=== PATIENT | female | born 1955 | race Caucasian/White ===

== ENCOUNTER → 2016-06-26 | Outpatient (CLI) | payer BC ==
--- NOTE | 2016-06-27 09:25 | MM ---
Reason for exam: screening (asymptomatic). Last mammogram was performed 3 years and 1 month ago. History: Patient is postmenopausal. Took hormonal contraceptives for 6 months beginning at age 18. Physical Findings: A clinical breast exam by your physician is recommended on an annual basis and results should be correlated with mammographic findings. MG Screening Mammo w CAD Bilateral CC and MLO view(s) were taken. Prior study comparison: June 10, 2013, bilateral digital screening mammo w/CAD. January 08, 2011, bilateral digital screening mammo w/CAD. The breast tissue is heterogeneously dense. This may lower the sensitivity of mammography. There is no discrete abnormality. No significant changes when compared with prior studies. ASSESSMENT: Negative, BI-RAD 1 RECOMMENDATION: Routine screening mammogram of both breasts in 1 year.
== END | disposition home or self-care (01) ==
LOC: RADMAMWWP 13:07
PROVIDERS: ATTEND Obstetrics & Gynecology
DX: Z12.31 Encounter for screening mammogram for malignant neoplasm of breast (principal)

== ENCOUNTER 2018-07-06 07:45 | Day surgery (SDC) | payer BC ==
[~2018-07-06 07:45] MED LIST: LACTATED RINGERS 1,000 ML IV SCH; LIDOCAINE 1% 20 ML VIAL (10MG/ML) FOR IV START INTRADERMA PRN
[2018-07-06 08:20] VITALS: TEMP 97.2
[2018-07-06] MEDS ORDERED: PROPOFOL 10 MG/ML 20 ML VIAL IV ONE (09:16)
[2018-07-06] MEDS ORDERED: LIDOCAINE 1% INJ 10MG/ML (20 ML MDV) ONE (09:16)
[2018-07-06] MEDS ORDERED: MIDAZOLAM 2 MG/2 ML VIAL ONE (09:16)
--- NOTE | 2018-07-06 09:46 | P.PCN ---
Date of Procedure: 07/06/18 Procedure(s) Performed: Procedure: Total colonoscopy. Preoperative diagnosis: Screening for neoplasia. Postoperative diagnosis: Exam within normal limits. Preparation: HalfLytely prep. Sedation: Was provided by anesthesia. Brief clinical history: The patient is a 63-year-old female who is scheduled for this evaluation for screening for neoplasia age being her risk factor. She has history of chronic neutropenia. She has no abdominal complaints, bleeding or anemia. No family history of colon cancer. This would be her first colonoscopy. Procedure: With the patient on her left lateral decubitus position and after informed consent and adequate sedation, the perianal area was inspected and it did not show any fissures or fistulas. The were no masses felt on digital rectal examination. The Olympus CFH 190L video colonoscope was then inserted in the rectum in the usual fashion and advanced to the cecum. The mucosa appeared healthy. No polyps or tumors were seen or any obvious diverticular disease or other pathology. I retroflexed theendoscope in the rectum before the endoscope was withdrawn. The patient tolerated the procedure well. Plan: The patient was reassured. She will follow-up with you as planned and I recommended repeat exam in 10 years.
[2018-07-06 10:03] VITALS: BP 122/80; PULSE 68; RESP 61
== END 2018-07-06 10:28 | disposition home or self-care (01) ==
LOC: ORWHC2ENDO 07:45
DX: Z12.11 Encounter for screening for malignant neoplasm of colon (principal); D70.9 Neutropenia, unspecified; Z88.0 Allergy status to penicillin; Z88.2 Allergy status to sulfonamides; Z79.899 Other long term (current) drug therapy; J44.9 Chronic obstructive pulmonary disease, unspecified
CPT/HCPCS: J2250; J2001; J2704; G0121

== ENCOUNTER → 2018-07-09 | Outpatient (CLI) | payer BC ==
--- NOTE | 2018-07-09 13:44 | MM ---
Reason for exam: screening (asymptomatic). Last mammogram was performed 2 years ago. History: Patient is postmenopausal. Took hormonal contraceptives for 6 months beginning at age 18. Physical Findings: A clinical breast exam by your physician is recommended on an annual basis and results should be correlated with mammographic findings. MG Screening Mammo w CAD Bilateral CC and MLO view(s) were taken. Prior study comparison: June 26, 2016, bilateral MG screening mammo w CAD. June 10, 2013, bilateral digital screening mammo w/CAD. The breast tissue is heterogeneously dense. This may lower the sensitivity of mammography. There are benign appearing round vascular calcifications bilaterally, greater in the left breast. There is no discrete abnormality. ASSESSMENT: Benign, BI-RAD 2 RECOMMENDATION: Routine screening mammogram of both breasts in 1 year.
== END ==
LOC: RADMAMWWP 07:33
PROVIDERS: ATTEND Internal Medicine Hematology & Oncology
DX: Z12.31 Encounter for screening mammogram for malignant neoplasm of breast (principal)
CPT/HCPCS: 77067

== ENCOUNTER 2020-07-07 13:31 | Emergency (ER) | payer BC, MEDICARE ==
[2020-07-07] MEDS ORDERED: SODIUM CHLORIDE 0.9% 500 ML 500 ML IV STA (13:58)
[2020-07-07] MEDS ORDERED: ONDANSETRON 4 MG/2 ML VIAL IVP STA (14:00)
[2020-07-07] MEDS ORDERED: IBUPROFEN 600 MG TAB PO STA (14:02)
--- NOTE | 2020-07-07 14:05 | ED ---
General Adult HPI - General Chief complaint: Shortness of Breath Stated complaint: SOB,+COVID Time Seen by Provider: 07/07/20 13:43 Source: patient, EMS Mode of arrival: EMS Limitations: no limitations - History of Present Illness Initial comments: 65-year-old female with a past medical history of chronic neutropenia, pneumonia COPD presents to the emergency room for a chief complaint of feeling unwell. Patient reports that for 7 days she has had symptoms of Covid. She tested positive 4 days ago. Patient reports that she has had body aches and fevers. States she has intermittent shortness of breath. Patient denies shortness of breath at this time. Denies any history of chest pain. Patient states she has also had nausea vomiting diarrhea. States she has been able to eat and drink a small amount but does feel dehydrated. Feels somewhat weak. Patient took Tylenol about 3 hours prior to arrival.Patient has no other complaints at this t aleida including shortness of breath, chest pain, abdominal pain, nausea or vomiting, headache, or visual changes. - Related Data Home Medications Medication Instructions Recorded Confirmed Biotin 5 mg PO DAILY 07/29/15 07/06/18 Glucosam/Sam-Msm1/C/Zurdo/Bosw 1 tab PO DAILY 07/29/15 07/06/18 [Glucosamine-Chondroitin Tablet] Multivit-Min/FA/Lycopen/Lutein 1 tab PO DAILY 07/29/15 07/06/18 [Centrum Silver Tablet] Filgrastim-Sndz [Zarxio] 480 mcg IJ SA 07/05/18 07/07/20 Allergies Allergy/AdvReac Type Severity Reaction Status Date / Time Penicillins AdvReac Rash/Hives Verified 07/07/20 15:52 Sulfa (Sulfonamide AdvReac Swelling Verified 07/07/20 15:52 Antibiotics) Review of Systems ROS Statement: Those systems with pertinent positive or pertinent negative responses have been documented in the HPI. ROS Other: All systems not noted in ROS Statement are negative. Past Medical History Past Medical History: COPD, Pneumonia Additional Past Medical History / Comment(s): neutropenia, pnuemonia History of Any Multi-Drug Resistant Organisms: None Reported Past Surgical History: Section Additional Past Surgical History / Comment(s): CS X 2. BILATERAL EAR TUBES. Past Anesthesia/Blood Transfusion Reactions: Motion Sickness Past Psychological History: No Psychological Hx Reported Smoking Status: Current every day smoker Past Alcohol Use History: None Reported Past Drug Use History: None Reported - Past Family History Mother Family Medical History: Cancer Additional Family Medical History / Comment(s): urethral cancer with urostomy Father Family Medical History: Coronary Artery Disease (CAD) Additional Family Medical History / Comment(s): cardiac stents General Exam Limitations: no limitations General appearance: alert, in no apparent distress Head exam: Present: atraumatic Eye exam: Present: normal appearance, PERRL, EOMI. Absent: scleral icterus, conjunctival injection ENT exam: Present: normal exam, mucous membranes moist Neck exam: Present: normal inspection, full ROM. Absent: tenderness Respiratory exam: Present: normal lung sounds bilaterally. Absent: respiratory distress, wheezes Cardiovascular Exam: Present: regular rate, normal rhythm, normal heart sounds GI/Abdominal exam: Present: soft, normal bowel sounds. Absent: distended, tenderness Neurological exam: Present: alert Psychiatric exam: Present: normal affect Course Vital Signs 07/07/20 07/07/20 13:36 15:16 Temperature 100.3 F H 100.6 F H Pulse Rate 84 79 Respiratory 24 20 Rate Blood Pressure 121/90 113/70 O2 Sat by Pulse 98 94 L Oximetry EKG Findings - EKG Comments: EKG Findings:: Normal sinus rhythm, ventricular rate 82, AR interval 148, QTC 448 Medical Decision Making - Medical Decision Making Vitals are stable. Patient 98% on room air. Does have a fever of 100.3. Patient took one 5 normal gram Tylenol hours prior to arrival today. Intermittent shortness of breath however no shortness of breath at this time. CBC unremarkable. White blood cell count is stable at 5.8. CMP unremarkable. CRP slightly elevated at 15.7. X-ray does show bilateral patchy areas of poorly marginated infiltrate that appears new. This is consistent with her outpatient diagnosis of covid at [facility]. Patient's oxygen remains above 94%. Patient is wishing to go home. She is in much better after Motrin and Tylenol. I discussed alternating these every 4 hours and following up with her doctor. I commended obtaining a pulse oximeter. However if she cannot obtain one or If she becomes more short of breath she will return to the emergency room. She is already taking vitamins. I discussed this case with attending Dr. Delgadillo who agrees with this assessment and treatment plan. - Lab Data Result diagrams: 07/07/20 14:00 07/07/20 14:00 Lab Results 07/07/20 07/07/20 07/07/20 Range/Units 14:00 14:00 14:00 WBC 5.8 (3.8-10.6) k/uL RBC 4.72 (3.80-5.40) m/uL Hgb 14.1 (11.4-16.0) gm/dL Hct 44.2 (34.0-46.0) % MCV 93.8 (80.0-100.0) fL MCH 29.9 (25.0-35.0) pg MCHC 31.9 (31.0-37.0) g/dL RDW 13.3 (11.5-15.5) % Plt Count 117 L (150-450) k/uL MPV 7.6 Neutrophils % 72 % Lymphocytes % 23 % Monocytes % 3 % Eosinophils % 0 % Basophils % 1 % Neutrophils # 4.2 (1.3-7.7) k/uL Lymphocytes # 1.3 (1.0-4.8) k/uL Monocytes # 0.2 (0-1.0) k/uL Eosinophils # 0.0 (0-0.7) k/uL Basophils # 0.0 (0-0.2) k/uL PT 10.1 (9.0-12.0) sec INR 0.9 (<1.2) APTT 25.5 (22.0-30.0) sec D-Dimer 0.36 (<0.60) mg/L FEU Sodium 135 L (137-145) mmol/L Potassium 4.1 (3.5-5.1) mmol/L Chloride 102 (98-107) mmol/L Carbon Dioxide 25 (22-30) mmol/L Anion Gap 8 mmol/L BUN 14 (7-17) mg/dL Creatinine 0.84 (0.52-1.04) mg/dL Est GFR (CKD-EPI)AfAm 84 (>60 ml/min/1.73 sqM) Est GFR (CKD-EPI)NonAf 73 (>60 ml/min/1.73 sqM) Glucose 98 (74-99) mg/dL Plasma Lactic Acid Perico (0.7-2.0) mmol/L Calcium 8.6 (8.4-10.2) mg/dL Magnesium 2.0 (1.6-2.3) mg/dL Total Bilirubin 0.4 (0.2-1.3) mg/dL AST 34 (14-36) U/L ALT 18 (4-34) U/L Alkaline Phosphatase 63 (38-126) U/L Lactate Dehydrogenase 585 (313-618) U/L C-Reactive Protein 15.7 H (<10.0) mg/L Total Protein 6.9 (6.3-8.2) g/dL Albumin 3.5 (3.5-5.0) g/dL 07/07/20 Range/Units 14:00 WBC (3.8-10.6) k/uL RBC (3.80-5.40) m/uL Hgb (11.4-16.0) gm/dL Hct (34.0-46.0) % MCV (80.0-100.0) fL MCH (25.0-35.0) pg MCHC (31.0-37.0) g/dL RDW (11.5-15.5) % Plt Count (150-450) k/uL MPV Neutrophils % % Lymphocytes % % Monocytes % % Eosinophils % % Basophils % % Neutrophils # (1.3-7.7) k/uL Lymphocytes # (1.0-4.8) k/uL Monocytes # (0-1.0) k/uL Eosinophils # (0-0.7) k/uL Basophils # (0-0.2) k/uL PT (9.0-12.0) sec INR (<1.2) APTT (22.0-30.0) sec D-Dimer (<0.60) mg/L FEU Sodium (137-145) mmol/L Potassium (3.5-5.1) mmol/L Chloride (98-107) mmol/L Carbon Dioxide (22-30) mmol/L Anion Gap mmol/L BUN (7-17) mg/dL Creatinine (0.52-1.04) mg/dL Est GFR (CKD-EPI)AfAm (>60 ml/min/1.73 sqM) Est GFR (CKD-EPI)NonAf (>60 ml/min/1.73 sqM) Glucose (74-99) mg/dL Plasma Lactic Acid Perico 1.2 (0.7-2.0) mmol/L Calcium (8.4-10.2) mg/dL Magnesium (1.6-2.3) mg/dL Total Bilirubin (0.2-1.3) mg/dL AST (14-36) U/L ALT (4-34) U/L Alkaline Phosphatase (38-126) U/L Lactate Dehydrogenase (313-618) U/L C-Reactive Protein (<10.0) mg/L Total Protein (6.3-8.2) g/dL Albumin (3.5-5.0) g/dL Disposition Clinical Impression: History of COVID-19, Pneumonia due to COVID-19 virus Disposition: HOME SELF-CARE Condition: Good Instructions (If sedation given, give patient instructions): Coronavirus Disease 2019 (COVID-19) Additional Instructions: Please take Motrin and Tylenol for fevers. You can take 2 extra strength Tyle nol up to 4 times daily. You can take 3 200 mg tablets of Motrin up to 4 times daily. Alternate these every 3 hours as needed for fever. Drink plenty of fluids. Continue to take your vitamins. If you're developing more shortness of breath or any other worsening symptoms you need to return to the emergency room. Is patient prescribed a controlled substance at d/c from ED?: No Referrals: Ludwig Carreno III, MD [Primary Care Provider] - 1-2 days Time of Disposition: 15:55
[2020-07-07 14:19] LABS: Basophils % (A) 1 %; Eosinophils % (A) 0 %; HCT 44.2 % (34.0-46.0); HGB 14.1 gm/dL (11.4-16.0); Lymphocytes # (A) 1.3 k/uL (1.0-4.8); Lymphocytes % (A) 23 %; MCH 29.9 pg (25.0-35.0); MCHC 31.9 g/dL (31.0-37.0); MCV 93.8 fL (80.0-100.0); Mean Platelet Volume 7.6; Monocytes # (A) 0.2 k/uL (0-1.0); Monocytes % (A) 3 %; Neutrophils # (A) 4.2 k/uL (1.3-7.7); Neutrophils % (A) 72 %; Platelet Count 117 k/uL (150-450); RBC 4.72 m/uL (3.80-5.40); RDW 13.3 % (11.5-15.5); WBC 5.8 k/uL (3.8-10.6)
--- NOTE | 2020-07-07 14:31 | XR ---
EXAMINATION TYPE: XR chest 1V portable DATE OF EXAM: 07/07/2020 COMPARISON: 07/29/2015 HISTORY: Pneumonia TECHNIQUE: Single view FINDINGS: There is some blunting of the left costophrenic angle and linear density at the left lung b ase. There is some poorly marginated patches of infiltrate in the left and right lung that measure up to 3 cm. Heart size is normal. There are no hilar masses. Mediastinum is normal. IMPRESSION: Bilateral patchy areas of poorly marginated infiltrate appears new compared to old exam. Mild subsegmental atelectasis left lung base. Normal heart.
[2020-07-07 14:35] LABS: Albumin 3.5 g/dL (3.5-5.0); C Reactive Protein 15.7 mg/L (<10.0); Calcium 8.6 mg/dL (8.4-10.2); Potassium 4.1 mmol/L (3.5-5.1); Total Bilirubin 0.4 mg/dL (0.2-1.3); Total Protein 6.9 g/dL (6.3-8.2)
[2020-07-07 14:42] LABS: D-Dimer 0.36 mg/L FEU (<0.60); INR 0.9 (<1.2); Partial Thromboplastin Time 25.5 sec (22.0-30.0); Prothrombin Time 10.1 sec (9.0-12.0)
[2020-07-07] MEDS ORDERED: ACETAMINOPHEN TAB 500 MG TAB PO STA (15:20)
[2020-07-07 16:17] VITALS: BP 104/67; PULSE 70; RESP 18; TEMP 98.7
[2020-07-07 23:58] LABS: Ferritin 358.3 ng/mL (10.0-291.0)
== END 2020-07-07 16:28 | disposition home or self-care (01) ==
LOC: EC 13:31
DX: U07.1 COVID-19 (principal); J12.82 Pneumonia due to coronavirus disease 2019; J44.0 Chronic obstructive pulmonary disease with (acute) lower respiratory infection; F17.200 Nicotine dependence, unspecified, uncomplicated; Z88.0 Allergy status to penicillin; Z88.2 Allergy status to sulfonamides
CPT/HCPCS: 36415; 93005; 85379; 80053; 82728; 83605; 83615; 83735; 85025; 85610; 85730; 86140; 84145; 71045; 99285; 96374; J2405

== ENCOUNTER → 2022-03-17 | Outpatient (CLI) | payer MEDICARE ==
--- NOTE | 2022-03-18 20:30 | MM ---
Reason for Exam: Screening (asymptomatic). Last mammogram was performed 3 year(s) and 8 month(s) ago. Patient History: Menarche at age 12. First Full-Term at age 20. Postmenopausal. Patient has history of breast feeding. Hormonal Contraceptives for 6 months from age 18 until age 18. Risk Values: Meg 5 year model risk: 1.5%. NCI Lifetime model risk: 5.4%. Prior Study Comparison: 06/10/2013 Bilateral Screening Mammogram, [facility]. 06/26/2016 Bilateral Screening Mammogram, [facility]. 07/09/2018 Bilateral Screening Mammogram, [facility]. Tissue Density: The breast tissue is heterogeneously dense. This may lower the sensitivity of mammography. Findings: Analyzed By CAD. Benign vascular calcifications on both sides. There is no suspicious group of microcalcifications or new suspicious mass in either breast. Overall Assessment: Benign, BI-RAD 2 Management: Screening Mammogram of both breasts in 1 year. 1. Patient should continue monthly self breast exams. 2. A clinical breast exam by your physician is recommended on an annual basis. 3. This exam should not preclude additional follow-up of suspicious palpable abnormalities. Electronically signed and approved by: Orion Ritter M.D. Radiologist
== END | disposition home or self-care (01) ==
LOC: RADMAMWWP 15:21
PROVIDERS: ATTEND Internal Medicine Hematology & Oncology
DX: Z12.31 Encounter for screening mammogram for malignant neoplasm of breast (principal)
CPT/HCPCS: 77063; 77067

== ENCOUNTER 2024-11-10 10:55 | Day surgery (SDC) | payer MEDICARE ==
[2024-11-08 16:01] VITALS: BMI 27.2
[2024-11-10] MEDS: IV FLUID CONTINUATION 1,000 ML IV ONE (11:45)
[2024-11-10 11:57] VITALS: TEMP 97.6
[2024-11-10] MEDS: LACTATED RINGERS 1,000 ML IV SCH (11:57)
[2024-11-10] MEDS: LIDOCAINE 1% (10MG/ML) FOR IV START INTRADERMA PRN (11:58)
[2024-11-10] MEDS ORDERED: PROPOFOL 10 MG/ML 20 ML VIAL IV ONE (12:48)
[2024-11-10] MEDS ORDERED: LIDOCAINE 1% INJ 10MG/ML (20 ML MDV) ONE (12:48)
--- NOTE | 2024-11-10 13:00 | P.GSHP ---
History of Present Illness H&P Date: 11/10/24 CHIEF COMPLAINT: Dysphagia and colon screen HISTORY OF PRESENT ILLNESS: The patient is a 69-year-old male who presents with dysphagia, gastroesophageal reflux disease and need for colon screen. Upper and lower endoscopy were offered for further evaluation and management. PAST MEDICAL HISTORY: Please see list. PAST SURGICAL HISTORY: Please see list. MEDICATIONS: Please see list. ALLERGIES: Please see list. SOCIAL HISTORY: No illicit drug use FAMILY HISTORY: No reports of Crohn disease or ulcerative colitis. REVIEW OF ORGAN SYSTEMS: CONSTITUTIONAL: No reports of fevers or chills. GI: Denies any blood in stools or constipation. PHYSICAL EXAM: VITAL SIGNS: Stable GENERAL: Well-developed pleasant in no acute distress. HEENT: No scleral icterus. Extraocular movements grossly intact. Moist buccal mucosa. NECK: Supple without lymphadenopathy. CHEST: Unlabored respirations. Equal bilateral excursions. CARDIOVASCULAR: Regular rate and rhythm. Distal 2+ pulses. ABDOMEN: Soft, nondistended. MUSCULOSKELETAL: No clubbing, cyanosis, or edema. ASSESSMENT: 1. Dysphagia and gastroesophageal reflux disease 2. Colon screen. PLAN: 1. Recommend proceeding with an upper and lower endoscopy Past Medical History Past Medical History: Cancer, Pneumonia Additional Past Medical History / Comment(s): recent voice hoarseness, neutropenia, pnuemonia. 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 BILATERAL EAR TUBES, B/L cataract surgery w/ lens implants, skin CA removal from finger and had 30 stitches on forehead Past Anesthesia/Blood Transfusion Reactions: No Reported Reaction, Motion Sickness Additional Past Anesthesia/Blood Transfusion Reaction / Comment(s): No hx of blood transfusion. Motion sickness in the past- 7 years ago due to having "fluid in her ear" Smoking Status: Never smoker - Past Family History Mother Family Medical History: Cancer Additional Family Medical History / Comment(s): urethral cancer with urostomy Father Family Medical History: Cancer, Coronary Artery Disease (CAD) Additional Family Medical History / Comment(s): cardiac stents, prostate cancer Medications and Allergies Home Medications Medication Instructions Recorded Confirmed Type Filgrastim-Sndz [Zarxio] 480 mcg SQ SA 07/05/18 11/08/24 History Biotin [Blgh-Zkbn-Fjptx] 1 dose PO DAILY 11/08/24 11/08/24 History Ferrous Sulfate [Feosol] 325 mg PO DAILY 11/08/24 11/08/24 History Multivitamins, Thera [Multivitamin 1 tab PO DAILY 11/08/24 11/08/24 History (formulary)] Zinc Gluconate [Zinc] 1 dose PO DAILY 11/08/24 11/08/24 History Allergies Allergy/AdvReac Type Severity Reaction Status Date / Time Sulfa (Sulfonamide AdvReac Swelling Verified 11/10/24 11:46 Antibiotics) Surgical - Exam Vital Signs Temp Pulse Resp BP Pulse Ox 97.6 F 69 16 148/87 97 11/10/24 11:52 11/10/24 11:52 11/10/24 11:52 11/10/24 11:52 11/10/24 11:52
--- NOTE | 2024-11-10 13:01 | P.PCN ---
Date of Procedure: 11/10/24 Description of Procedure: PREOPERATIVE DIAGNOSIS: Gastroesophageal reflux disease. Dysphagia POSTOPERATIVE DIAGNOSIS: Gastroesophageal reflux disease with erosive esophagitis Gastritis. OPERATION: Esophagogastroduodenoscopy with cold forceps biopsies along esophagus, antrum and duodenum SURGEON: Jasmin Ortez MD ANESTHESIA: MAC. INDICATIONS: The patient is a 69-year-old female who presents with dysphagia and reflux disease. Benefits and risks of the procedure were described. Informed consent w as obtained. DESCRIPTION: The patient was brought into the endoscopy suite and laid in the left lateral decubitus position. An Olympus gastroscope was passed along the posterior oropharynx down to the distal esophagus where the squamocolumnar junction was encountered at 40 cm from the incisors. The stomach was entered and no bile reflux was found. Additional findings are listed below. Biopsies with cold forceps were obtained of the antrum. The first through third portion of the duodenum was examined. Retroflexion of the scope confirmed Hill grade 2 lower esophageal valve. The squamocolumnar junction demonstrated LA grade B erosive esophagitis. The stomach was desufflated. The patient tolerated the procedure well. FINDINGS: Squamocolumnar junction 40 cm from the incisors. Diaphragmatic hiatus at 40 cm. Hill grade 4 lower esophageal valve. LA grade B erosive esophagitis. Biopsies obtained Biopsies obtained of the duodenum. Chronic gastritis with biopsies obtained. RECOMMENDATIONS: Upper endoscopy as needed.
--- NOTE | 2024-11-10 13:18 | P.PCN ---
Date of Procedure: 11/10/24 Description of Procedure: PREOPERATIVE DIAGNOSIS: Family history of colon cancer Colonoscopy screening. POSTOPERATIVE DIAGNOSIS: Colonoscopy screening. OPERATION: Colonoscopy to the cecum, ileocecal valve and appendiceal orifice. SURGEON: Jasmin Ortez MD. ANESTHESIA: MAC. INDICATIONS: The patient is a 69-year-old female who presents for colonoscopy screening. Last colonoscopy 5 years ago. Benefits and risks were described and informed consent was obtained. DESCRIPTION OF PROCEDURE: The patient had undergone Suprep. The patient had been brought into the operating room and laid in the left lateral decubitus position. After adequate intravenous sedation, the rectum was examined with 2% lidocaine jelly. External hemorrhoids were encountered. The rectal tone was within normal limits. No lesions were palpated in the rectal vault. An Olympus colonoscope was advanced until the cecum, ileocecal valve and appendiceal orifice were clearly viewed. The prep was excellent. Scattered diverticulosis was encountered. No colonic polyps were found. No evidence of focal colitis was found. Retroflexion of the scope demonstrated grade 3 internal hemorrhoids without active bleeding or inflammation. The colon was desufflated. The patient had tolerated the procedure well. Withdrawal time was over 6 minutes. FINDINGS: Aronchick preparation quality scale 2+ (1-5) Internal hemorrhoids, grade 3 External prolapsed hemorrhoids, grade 3 No arteriovenous malformations. No adenomatous polyps. No focal colitis. Highly redundant sigmoid colon requiring abdominal pressure RECOMMENDATIONS: Lower endoscopy in 5 [id number] Plan - Discharge Summary Discharge Rx Participant: No New Discharge Prescriptions: Continue Filgrastim-Sndz [Zarxio] 480 mcg SQ SA Multivitamins, Thera [Multivitamin (formulary)] 1 tab PO DAILY Zinc Gluconate [Zinc] 1 dose PO DAILY Biotin [Itsa-Zshp-Cylyb] 1 dose PO DAILY Ferrous Sulfate [Iron (65 MG Elemental)] 325 mg PO DAILY Discharge Medication List Filgrastim-Sndz [Zarxio] 480 mcg SQ SA 07/05/18 [History] Biotin [Aghl-Lzqb-Zgyhw] 1 dose PO DAILY 11/08/24 [History] Ferrous Sulfate [Iron (65 MG Elemental)] 325 mg PO DAILY 11/08/24 [History] Multivitamins, Thera [Multivitamin (formulary)] 1 tab PO DAILY 11/08/24 [History] Zinc Gluconate [Zinc] 1 dose PO DAILY 11/08/24 [History] Follow up Appointment(s)/Referral(s): Jasmin Ortez MD [STAFF PHYSICIAN] - 12/06/24 10:00 am Patient Instructions/Handouts: Gastritis (GEN), Diet for Stomach Ulcers and Gastritis (GEN) Activity/Diet/Wound Care/Special Instructions: Repeat colonoscopy 5 years, 2030 Discharge Disposition: HOME SELF-CARE
[2024-11-10 13:38] VITALS: BP 124/81; PULSE 67; RESP 16
== END 2024-11-10 14:18 | disposition home or self-care (01) ==
LOC: ORWHC2ENDO 10:55
PROVIDERS: ATTEND Surgery Plastic and Reconstructive Surgery
DX: Z12.11 Encounter for screening for malignant neoplasm of colon (principal); K21.00 Gastro-esophageal reflux disease with esophagitis, without bleeding; K29.50 Unspecified chronic gastritis without bleeding; D70.9 Neutropenia, unspecified; F17.200 Nicotine dependence, unspecified, uncomplicated; Z80.0 Family history of malignant neoplasm of digestive organs; Z88.1 Allergy status to other antibiotic agents; Z88.2 Allergy status to sulfonamides
CPT/HCPCS: 88305; 43239; J2003; J2704; G0105; 45378